=== PATIENT | female | born 1985 | race Hispanic/Latino ===

== ENCOUNTER 2017-10-29 09:53 | Emergency (ER) | payer SELFPAY ==
[2017-10-29 10:05] VITALS: BP 122/79
[2017-10-29] MEDS ORDERED: NORCO 7.5/325 PO ONE (11:58)
[2017-10-29] MEDS ORDERED: MOTRIN PO ONE (11:58)
[2017-10-29] MEDS ORDERED: CLEOCIN PO ONE (12:01)
--- NOTE | 2017-10-29 12:06 | Emergency Department Report ---
ED Extremity Problem HPI - General Chief complaint: Skin/Abscess/Foreign Body Stated complaint: RIGHT FOOT SWOLLEN Time Seen by Provider: 10/29/17 11:31 Source: patient Mode of arrival: Ambulatory Limitations: No Limitations - History of Present Illness Initial comments: Damion is a 32-year-old female who is presenting with a swollen right foot. Patient states she had a hard callus under the right foot approximately week ago that she "popped" with a sewing needle. Patient states for the last 3 days she has developed some redness and swelling to the foot from the area where the blister is through the fourth toe and now extending onto the dorsum of the right foot. Patient states there is pain is throbbing 6 out of 10 in severity. Patient denies any fever nausea vomiting at this time. Patient is nondiabetic. - Related Data Previous Rx's Medication Instructions Recorded Last Taken Type HYDROcodone/APAP 5-325 [[place] 1 each PO Q6HR PRN #12 tablet 12/27/14 Unknown Rx 5/325] metroNIDAZOLE [Flagyl] 500 mg PO Q12HR #14 tab 12/27/14 Unknown Rx Clindamycin [Clindamycin CAP] 300 mg PO Q8H 7 Days cap 10/29/17 Unknown Rx HYDROcodone/APAP 5-325 [[place] 1 each PO Q6HR PRN #15 tablet 10/29/17 Unknown Rx 5/325] Ibuprofen [Motrin] 800 mg PO Q8HR PRN #20 tablet 10/29/17 Unknown Rx Allergies Allergy/AdvReac Type Severity Reaction Status Date / Time No Known Allergies Allergy Unverified 12/27/14 13:04 ED Review of Systems ROS: Stated complaint: RIGHT FOOT SWOLLEN Other details as noted in HPI Comment: All other systems reviewed and negative ED Past Medical Hx - Past Medical History Hx Asthma: Yes Additional medical history: Kidney reflux - Surgical History Past Surgical History?: Yes Hx Cholecystectomy: Yes Additional Surgical History: Tubal ligation. Left oophorectomy - Social History Smoking Status: Current Every Day Smoker Substance Use Type: None - Medications Home Medications: Home Medications Medication Instructions Recorded Confirmed Last Taken Type HYDROcodone/APAP 5-325 [[place] 1 each PO Q6HR PRN #12 tablet 12/27/14 Unknown Rx 5/325] metroNIDAZOLE [Flagyl] 500 mg PO Q12HR #14 tab 12/27/14 Unknown Rx Clindamycin [Clindamycin CAP] 300 mg PO Q8H 7 Days cap 10/29/17 Unknown Rx HYDROcodone/APAP 5-325 [[place] 1 each PO Q6HR PRN #15 tablet 10/29/17 Unknown Rx 5/325] Ibuprofen [Motrin] 800 mg PO Q8HR PRN #20 tablet 10/29/17 Unknown Rx ED Physical Exam - General Limitations: No Limitations General appearance: alert, in no apparent distress - Head Head exam: Present: atraumatic, normocephalic - Eye Eye exam: Present: normal appearance - ENT ENT exam: Present: mucous membranes moist - Neck Neck exam: Present: normal inspection - Respiratory Respiratory exam: Present: normal lung sounds bilaterally. Absent: respiratory distress - Cardiovascular Cardiovascular Exam: Present: regular rate, normal rhythm. Absent: systolic murmur, diastolic murmur, rubs, gallop - GI/Abdominal GI/Abdominal exam: Present: soft, normal bowel sounds - Extremities Exam Extremities exam: Present: tenderness (patient has hardened callus just proximal to the toes on the plantar surface of the right foot there is some surrounding erythema and swelling and warmth in this area extending through the fourth toe and the dorsum of the foot laterally. There is no involvement of the ankle.), joint swelling. Absent: normal inspection - Back Exam Back exam: Present: normal inspection - Neurological Exam Neurological exam: Present: alert, oriented X3 - Psychiatric Psychiatric exam: Present: normal affect, normal mood - Skin Skin exam: Present: warm, dry, intact, normal color. Absent: rash ED Course Vital Signs 10/29/17 10:02 Temperature 97.7 F Pulse Rate 122 H Respiratory 16 Rate Blood Pressure 122/79 O2 Sat by Pulse 97 Oximetry Critical care attestation.: If time is entered above; I have spent that time in minutes in the direct care of this critically ill patient, excluding procedure time. ED Disposition Clinical Impression: Cellulitis of foot Disposition: DC-01 TO HOME OR SELFCARE Is pt being admited?: No Does the pt Need Aspirin: No Condition: Stable Instructions: Cellulitis (ED) Additional Instructions: Diffuse swelling has not started to improve after 3 days of antibiotics at home please return for reassessment. Referrals: DARSHAN LOPEZ DPM [Staff Physician] - 3-5 Days
== END 2017-10-29 12:40 | disposition home or self-care (01) ==
LOC: ED 09:53
DX: L03.115 Cellulitis of right lower limb (principal); F17.200 Nicotine dependence, unspecified, uncomplicated; J45.909 Unspecified asthma, uncomplicated; Z98.51 Tubal ligation status; Z90.49 Acquired absence of other specified parts of digestive tract; Z90.721 Acquired absence of ovaries, unilateral
CPT/HCPCS: 99283

== ENCOUNTER 2018-05-03 18:01 | Emergency (ER) | payer SELFPAY ==
[2018-05-03 18:08] VITALS: BP 119/75
[2018-05-03] MEDS ORDERED: ULTRAM PO ONE (20:04)
--- NOTE | 2018-05-03 20:09 | Emergency Department Report ---
ED Laceration HPI - HPI Chief Complaint: Wound/Laceration Stated Complaint: FELL Time Seen by Provider: 05/03/18 20:02 Occurred When: Today (1630) Location: Head Severity: mild Tetanus Status: Not up to Date Laceration Symptoms: Yes Pain, No Foreign Body Sensation, No Numbness, No Weakness Other History: 32-year-old female presents to the ED with complaint of a laceration to the back of her head after falling down her sister stairs today. This happened about 1630. Patient denies any dizziness prior to the fall. Patient reports that she applied pressure to the head bleed. Patient denies any nausea no vomiting no dizziness no change of vision. She does admit to a slight headache. Past medical history kidney reflux currently takes no medications on a daily basis has no known drug allergies. ED Review of Systems ROS: Stated complaint: FELL Other details as noted in HPI Comment: All other systems reviewed and negative Skin: other (cut to the back of head) Neurological: headache ED Past Medical Hx - Past Medical History Hx Asthma: Yes Additional medical history: Kidney reflux - Surgical History Hx Cholecystectomy: Yes Additional Surgical History: Tubal ligation, x2. Left oophorectomy - Social History Smoking Status: Current Every Day Smoker Substance Use Type: None - Medications Home Medications: Home Medications Medication Instructions Recorded Confirmed Last Taken Type HYDROcodone/APAP 5-325 [[place] 1 each PO Q6HR PRN #12 tablet 12/27/14 Unknown Rx 5/325] metroNIDAZOLE [Flagyl] 500 mg PO Q12HR #14 tab 12/27/14 Unknown Rx Clindamycin [Clindamycin CAP] 300 mg PO Q8H 7 Days cap 10/29/17 Unknown Rx HYDROcodone/APAP 5-325 [[place] 1 each PO Q6HR PRN #15 tablet 10/29/17 Unknown Rx 5/325] Ibuprofen [Motrin 800 MG tab] 800 mg PO Q8HR PRN #20 tablet 05/03/18 Unknown Rx Laceration Physical Exam - Exam General: Vital signs noted. No distress. Alert and acting appropriately. Cranial Nerves: l. Olfactory intact ll. Optic intact lll, IV, Vl. Oculomotor, Trochlear, Abducen intact, eyelids opening EOMI V. Trigeminal intact able to raise eyebrows, pucker smile Vll. Facial eyebrows raise, eyelid close smile lX., X Glossopharyngeal, vagus - palte levation swallowing and gag reflex Xl.-spinal accessory - lateral head ratation, neck flextion, shoulder shrug Xll. Hypoglossal- tongu protrusion and strength on lateral deviation Cerebellum: finger to nose intact heel to ariza and rapid alternating hand movement Gait taest tandem gait, walking on heels and toes Wound Length (cm): 1 Laceration Location: Head (occipital) Laceration Exam: Yes Normal Distal CMS, No Foreign Body, No Exposed Tendon, Vessel, or Nerve, No Tendon Injury ED Course Vital Signs 05/03/18 18:03 Temperature 97.9 F Pulse Rate 98 H Respiratory 16 Rate Blood Pressure 119/75 O2 Sat by Pulse 99 Oximetry - Laceration /Wound Repair Posterior Head Wound Location: head Wound Length (cm): 1 Wound's Depth, Shape: superficial Irrigated w/ Saline (ccs): 45 Number of Sutures: 1 (staple) Progress: Patient tolerated procedure well ED Medical Decision Making - Radiology Data Radiology results: report reviewed CT head without contrast normal examination - Medical Decision Making Patient has been evaluated by this provider in fast track. Tramadol given to patient for pain management The wound will be cleaned with normal saline 1 staple Patient is to follow-up in 7 days to remove staple Patient's instructed to return sooner if she started to have nausea vomiting or worsening of her headache. Critical care attestation.: If time is entered above; I have spent that time in minutes in the direct care of this critically ill patient, excluding procedure time. ED Disposition Clinical Impression: Fall Qualifiers: Encounter type: initial encounter Qualified Code(s): W19.XXXA - Unspecified fall, initial encounter Head injury due to trauma Qualifiers: Encounter type: initial encounter Qualified Code(s): S09.90XA - Unspecified injury of head, initial encounter Disposition: - TO HOME OR SELFCARE Is pt being admited?: No Does the pt Need Aspirin: No Condition: Stable Instructions: Laceration (ED), Fall Prevention (ED) Additional Instructions: Return to the emergency room to have staple removal in 4-5 days. You can take Tylenol or Motrin for headache. Prescriptions: Ibuprofen [Motrin 800 MG tab] 800 mg PO Q8HR PRN #20 tablet PRN Reason: Pain Referrals: JUNG ORTIZ MD [Primary Care Provider] - 3-5 Days [facility] [Provider Group] - 3-5 Days
--- NOTE | 2018-05-03 20:50 | Cat Scan Report ---
FINAL REPORT PROCEDURE: CT HEAD/BRAIN WO CON TECHNIQUE: Computerized tomography of the head was performed without contrast material. HISTORY: fall with laceration on back of head COMPARISON: No prior studies are available for comparison. FINDINGS: Skull and scalp: Normal. Paranasal sinuses: Normal. Ventricles and subarachnoid spaces: Normal. Cerebrum: No evidence of hemorrhage, acute infarction or mass . Cerebellum and brainstem: No evidence of hemorrhage, acute infarction or mass. Vasculature: Normal. Comments: None. IMPRESSION: Normal Examination
== END 2018-05-03 21:21 | disposition home or self-care (01) ==
LOC: ED 18:01
DX: S01.01XA Laceration without foreign body of scalp, initial encounter (principal); J45.909 Unspecified asthma, uncomplicated; F17.200 Nicotine dependence, unspecified, uncomplicated; Z98.51 Tubal ligation status; Z90.721 Acquired absence of ovaries, unilateral; W10.8XXA Fall (on) (from) other stairs and steps, initial encounter; Y93.89 Activity, other specified; Y92.89 Other specified places as the place of occurrence of the external cause; Y99.8 Other external cause status
CPT/HCPCS: 70450; 99283